=== PATIENT | male | born 1965 | race Caucasian/White ===

== ENCOUNTER → 2016-10-22 | Day surgery (SDC) | payer BC ==
[~2016-10-22] MED LIST: BELSOMRA10 MG PO; FLOMAX0.4 M1 DOB; MULTI VITAMIN1 EACH PO; OMEPRAZOLE20 M2 PO
--- NOTE | ~2016-10-22 | OR ---
Unit #: [id number] #: [id number] Patient: ERWIN CRUZ [id number] [address] [place], [place] [address] [id number] MR#: [id number] NAME: ERWIN CRUZ ROOM: Date of Procedure: 10/22/2016 Admission Date: 10/22/2016 Surgeon: Alexander Lentz M.D. : 1965 Attending Physician: Alexander Lentz M.D. Primary Care Physician: Ronnell Oropeza M.D. OPERATIVE REPORT PREOPERATIVE DIAGNOSIS Screening colonoscopy. POSTOPERATIVE DIAGNOSIS Sigmoid diverticular disease. PROCEDURE PERFORMED Colonoscopy to cecum. ANESTHESIA IV sedation. COMPLICATIONS None. INDICATIONS FOR PROCEDURE The patient is a 51-year-old for screening colonoscopy. DESCRIPTION OF PROCEDURE The patient was taken to the operating theater and placed in left lateral decubitus position. IV sedation was initiated. Digital rectal exam was normal. Colonoscope was then passed under direct vision and navigated to the cecum. The patient had excellent prep. I identified the sigmoid diverticula, noninflamed. No neoplastic lesions. No colitis. He tolerated the procedure well and sent to the recovery room in good condition. PLAN Recommend repeat colonoscopy in 10 years. We will treat with Colace on a daily basis. Dictated by... Jauqi Webster/johnl TD: 10/22/2016 12:36 JOB #: [id number] Unit #: [id number] #: [id number] Patient: ERWIN CRUZ OPERATIVE REPORT X Alexander Lentz MD X PROCEDURE OPERATIVE NOTE
== END | disposition home or self-care (01) ==
LOC: COPS 10:51
PROVIDERS: Surgery
PROC: 0DJD8ZZ Inspection of Lower Intestinal Tract, Via Natural or Artificial Opening Endoscopic (ICD-10-PCS; principal; 2016-10-22 13:00)
DX: Z12.11 Encounter for screening for malignant neoplasm of colon (principal); K57.30 Diverticulosis of large intestine without perforation or abscess without bleeding; Z80.0 Family history of malignant neoplasm of digestive organs; K21.9 Gastro-esophageal reflux disease without esophagitis; Z79.899 Other long term (current) drug therapy; G47.00 Insomnia, unspecified; Z86.73 Personal history of transient ischemic attack (TIA), and cerebral infarction without residual deficits; Z80.42 Family history of malignant neoplasm of prostate; Z88.0 Allergy status to penicillin
CPT/HCPCS: J2250